=== PATIENT | male | born 1980 | race Caucasian/White ===

== ENCOUNTER 2019-12-17 10:12 | Emergency (ER) | payer OTHER ==
[2019-12-17 10:25] VITALS: BP 133/80; PULSE 78
--- NOTE | 2019-12-17 10:56 | EDM.PDOC ---
ED HPI GENERAL MEDICAL PROBLEM - General Chief Complaint: Abdominal Pain Stated Complaint: STOMACH PAIN Time Seen by Provider: 12/17/19 10:46 - History of Present Illness INITIAL COMMENTS - FREE TEXT/NARRATIVE: 39-year-old male presents the emergency room with abdominal pain. Patient has had some intermittent left lower abdominal pain for the past several months. He also has had pretty significant constipation for the last 3 weeks. He was seen in the walk-in clinic they started him on MiraLAX. They also did a groin ultrasound which did not show a hernia or any other significant changes according to the patient. The patient had a very small BM this morning consisting of a few small jarod and this is the way it is gone for the last couple of weeks. He did start MiraLAX after being seen in the walk-in clinic a week ago but this has not really helped yet he is developing more pressure in this area. The patient has not had any vomiting, but recently has had some intermittent brief nausea. No fevers or chills. Denies any burning or frequency with urination. 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 Treatments CEMENT MASON: Reports: Other (see below) Other Treatments CEMENT MASON: miralax, increase fluid intake Abdominal Pain Score (Numeric/FACES): 4 - Related Data Allergies Allergy/AdvReac Type Severity Reaction Status Date / Time meperidine [From Demerol] Allergy Vomiting Verified 12/17/19 10:26 Home Meds: Home Meds Latanoprost 1 drop EYEBOTH DAILY 12/17/19 [History] Omeprazole 20 mg PO DAILY 12/17/19 [History] lisinopriL [Lisinopril] 30 mg PO DAILY 12/17/19 [History] Past Medical History HEENT History: Reports: Impaired Vision Cardiovascular History: Reports: Hypertension Respiratory History: Reports: None Gastrointestinal History: Reports: GERD Genitourinary History: Reports: Other (See Below) Other Genitourinary History: urgency and up at night to void more than once Musculoskeletal History: Reports: Back Pain, Chronic Neurological History: Reports: None Psychiatric History: Reports: None Endocrine/Metabolic History: Reports: None Hematologic History: Reports: None Immunologic History: Reports: None Oncologic (Cancer) History: Reports: None Dermatologic History: Reports: None - Infectious Disease History Infectious Disease History: Reports: Meningitis - Past Surgical History Head Surgeries/Procedures: Reports: None HEENT Surgical History: Reports: Oral Surgery, Other (See Below) Other HEENT Surgeries/Procedures: mass removed from right jaw Male Surgical History: Reports: Other (See Below) Other Male Surgeries/Procedures: testcular vein Musculoskeletal Surgical History: Reports: Other (See Below) Other Musculoskeletal Surgeries/Procedures:: bone spurs and fused vertabre in lower back Social & Family History - Family History HEENT: Reports: None Cardiac: Reports: Heart Failure Respiratory: Reports: None GI: Reports: None : Reports: None OBGYN: Reports: None Musculoskeletal: Reports: None Neurological: Reports: None Psychiatric: Reports: None Endocrine/Metabolic: Reports: None Hematologic: Reports: None Immunologic: Reports: None Oncologic: Reports: Prostate, Other (See Below) Other Oncologic Family History: throat - Tobacco Use Packs/Tins Daily: 0.2 - Caffeine Use Caffeine Use: Reports: Coffee, Soda, Tea - Recreational Drug Use Recreational Drug Use: No ED ROS GENERAL - Review of Systems Review Of Systems: See Below Constitutional: Reports: No Symptoms HEENT: Reports: No Symptoms Respiratory: Reports: No Symptoms Cardiovascular: Reports: No Symptoms GI/Abdominal: Reports: Abdominal Pain, Constipation, Diarrhea (At a couple times he had some episodes of very small watery stools.), Nausea (Brief occasional). Denies: Vomiting : Reports: No Symptoms ED EXAM, GI/ABD - Physical Exam Exam: See Below Exam Limited By: No Limitations General Appearance: Alert, No Apparent Distress Head: Atraumatic, Normocephalic Neck: Normal Inspection, Supple, Non-Tender, Full Range of Motion. No: Lymph adenopathy (L), Lymphadenopathy (R) Respiratory/Chest: No Respiratory Distress, Lungs Clear, Normal Breath Sounds Cardiovascular: Regular Rate, Rhythm, No Edema, No Murmur GI/Abdominal Exam: Normal Bowel Sounds, Soft, Tender (Mild tenderness in the left lower quadrant with palpation no rigidity rebound or guarding noted) (Male) Exam: No Hernia, Normal Inspection Course - Vital Signs Last Recorded V/S: Last Vital Signs Temp 36.4 C 12/17/19 10:20 Pulse 78 12/17/19 10:20 Resp 16 12/17/19 10:20 BP 133/80 12/17/19 10:20 Pulse Ox 100 12/17/19 10:20 - Orders/Labs/Meds Orders: Active Orders 24 hr Category Date Time Status Abdomen 2V AP Flat Upright [CR] Stat Exams 12/17/19 10:57 Taken Labs: Laboratory Tests 12/17/19 12/17/19 12/17/19 Range/Units 11:15 11:23 11:23 WBC 6.61 (4.23-9.07) K/mm3 RBC 4.54 L (4.63-6.08) M/mm3 Hgb 14.9 (13.7-17.5) gm/dl Hct 43.0 (40.1-51.0) % MCV 94.7 H (79.0-92.2) fl MCH 32.8 H (25.7-32.2) pg MCHC 34.7 (32.2-35.5) g/dl RDW Std Deviation 41.3 (35.1-43.9) fL Plt Count 258 (163-337) K/mm3 MPV 10.2 (9.4-12.3) fl Neut % (Auto) 64.0 (34.0-67.9) % Lymph % (Auto) 25.0 (21.8-53.1) % [place] % (Auto) 8.0 (5.3-12.2) % Eos % (Auto) 2.0 (0.8-7.0) Baso % (Auto) 0.5 (0.1-1.2) % Neut # (Auto) 4.24 (1.78-5.38) K/mm3 Lymph # (Auto) 1.65 (1.32-3.57) K/mm3 [place] # (Auto) 0.53 (0.30-0.82) K/mm3 Eos # (Auto) 0.13 (0.04-0.54) K/mm3 Baso # (Auto) 0.03 (0.01-0.08) K/mm3 Sodium 139 (136-145) mEq/L Potassium 4.3 (3.5-5.1) mEq/L Chloride 102 (98-107) mEq/L Carbon Dioxide 28 (21-32) mEq/L Anion Gap 13.3 (5-15) BUN 18 (7-18) mg/dL Creatinine 1.2 (0.7-1.3) mg/dL Est Cr Clr Drug Dosing 98.78 mL/min Estimated GFR (MDRD) > 60 (>60) mL/min BUN/Creatinine Ratio 15.0 (14-18) Glucose 94 (74-106) mg/dL Calcium 9.4 (8.5-10.1) mg/dL Total Bilirubin 0.8 (0.2-1.0) mg/dL AST 26 (15-37) U/L ALT 46 (16-63) U/L Alkaline Phosphatase 54 (46-116) U/L Total Protein 8.3 H (6.4-8.2) g/dl Albumin 4.9 (3.4-5.0) g/dl Globulin 3.4 gm/dL Albumin/Globulin Ratio 1.4 (1-2) Urine Color Light yellow (Yellow) Urine Appearance Clear (Clear) Urine pH 7.0 (5.0-8.0) Ur Specific [place] > or = 1.030 (1.005-1.030) Urine Protein Negative (Negative) Urine Glucose (UA) Negative (Negative) Urine Ketones Negative (Negative) Urine Occult Blood Negative (Negative) Urine Nitrite Negative (Negative) Urine Bilirubin Negative (Negative) Urine Urobilinogen 0.2 (0.2-1.0) Ur Leukocyte Esterase Negative (Negative) - Re-Assessments/Exams Free Text/Narrative Re-Assessment/Exam: 12/17/19 12:57 Laboratory evaluation is unremarkable. Abdominal x-ray shows fair amount of stool accumulation in the right side of the colon. A little bit in the rectum sigmoid colon is not remarkable. Did discuss this with the patient and we will go ahead and treat with mag citrate and see how he does. We did discuss the pros and cons of doing a CT and he would like to hold off on this at this point. Departure - Departure Time of Disposition: 12:58 Disposition: Home, Self-Care 01 Clinical Impression: Abdominal pain, Constipation - Discharge Information Referrals: Anita Davenport PA-C [Primary Care Provider] - Forms: ED Department Discharge Additional Instructions: Return to the emergency room with any questions problems or worsening symptoms. Return to the emergency room if not better in 24 hours sooner if getting worse. Go to the pharmacy and get 2 bottles of magnesium citrate. Go home poor 1 over ice and drink it but the other in the refrigerator. If you do not have a significant BM in 6 hours drink the second bottle. Continue using the MiraLAX as directed. Follow-up with your regular healthcare provider this next week if needed. Sepsis Event Note (ED) - Evaluation Sepsis Screening Result: No Definite Risk - Focused Exam Vital Signs: Vital Signs Temp Pulse Resp BP Pulse Ox 12/17/19 10:20 36.4 C 78 16 133/80 100 - My Orders Last 24 Hours: My Active Orders 12/17/19 10:57 Abdomen 2V AP Flat Upright [CR] Stat - Assessment/Plan Last 24 Hours: My Active Orders 12/17/19 10:57 Abdomen 2V AP Flat Upright [CR] Stat
--- NOTE | 2019-12-19 09:46 | CR ---
Abdomen: Supine and upright views of the abdomen were obtained. Comparison: No prior abdominal imaging is available. Scattered gas within small bowel and colon is seen believed to be within normal limits. Calcifications are noted within the pelvis most likely representing phleboliths. No free air is identified. Bony structures appear within normal limits for the patient's age. Impression: 1. Nothing acute is identified on 2 view abdominal x-ray. Diagnostic code #1 This report was dictated in MDT
== END 2019-12-17 13:15 | disposition home or self-care (01) ==
LOC: JD.ED 10:12
DX: K59.00 Constipation, unspecified (principal); I10 Essential (primary) hypertension; K21.9 Gastro-esophageal reflux disease without esophagitis; F17.220 Nicotine dependence, chewing tobacco, uncomplicated; Z79.899 Other long term (current) drug therapy; Z88.5 Allergy status to narcotic agent
CPT/HCPCS: 36415; 74019; 74019-26; 80053; 81003; 85025; 99282; 99284-25

== ENCOUNTER 2020-02-01 15:15 | Emergency (ER) | payer OTHER ==
[2020-02-01 15:56] VITALS: BP 132/86; PULSE 75
[2020-02-01] MEDS ORDERED: Lactated Ringers 1,000 ML IV ONE (16:26)
[2020-02-01] MEDS ORDERED: Sodium Chloride 0.9% 10 ML Syringe FLUSH PRN (16:26)
--- NOTE | 2020-02-01 17:49 | EDM.PDOC ---
ED HPI GENERAL MEDICAL PROBLEM - General Chief Complaint: General Stated Complaint: MUSCLE CRAMPING ENTIRE BODY Time Seen by Provider: 02/01/20 15:59 Source of Information: Reports: Patient, RN Notes Reviewed - History of Present Illness INITIAL COMMENTS - FREE TEXT/NARRATIVE: Has been working out in heat today and previous days this week. He developed severe cramping arms and legs. He felt weak and dizzy. Now feeling better after arrival to ED and getting out of heat. He has not been vomiting. No cough, fever or difficulty breathing. Generalized Pain Score (Numeric/FACES): 9 - Related Data Allergies Allergy/AdvReac Type Severity Reaction Status Date / Time meperidine [From Demerol] Allergy Vomiting Verified 02/01/20 15:56 Home Meds: Home Meds Latanoprost 1 drop EYEBOTH DAILY 12/17/19 [History] Omeprazole 20 mg PO DAILY 12/17/19 [History] lisinopriL [Lisinopril] 30 mg PO DAILY 12/17/19 [History] Multivit-Min/Folic/Vit K/Lycop [Men's Multivitamin Tablet] 1 each PO DAILY 02/01/20 [History] Psyllium Husk [Fiber] 0 gm PO DAILY 02/01/20 [History] Past Medical History HEENT History: Reports: Glaucoma, Impaired Vision Cardiovascular History: Reports: Hypertension Respiratory History: Reports: None Gastrointestinal History: Reports: GERD, Other (See Below) Other Gastrointestinal History: Pt has 2 hernias that will be operated on 04/10. Genitourinary History: Reports: Other (See Below) Other Genitourinary History: urgency and up at night to void more than once Musculoskeletal History: Reports: Back Pain, Chronic Neurological History: Reports: None Psychiatric History: Reports: None Endocrine/Metabolic History: Reports: Obesity/BMI 30+ Hematologic History: Reports: None Immunologic History: Reports: None Oncologic (Cancer) History: Reports: None Dermatologic History: Reports: None - Infectious Disease History Infectious Disease History: Reports: None - Past Surgical History HEENT Surgical History: Reports: Oral Surgery, Other (See Below) Other HEENT Surgeries/Procedures: mass removed from right jaw Male Surgical History: Reports: Other (See Below) Other Male Surgeries/Procedures: testcular vein Neurological Surgical History: Reports: Other (See Below) Other Neurological Surgeries/Procedures: Ulnar Nerve Surgery Musculoskeletal Surgical History: Reports: Other (See Below) Other Musculoskeletal Surgeries/Procedures:: bone spurs and fused vertabre in lower back, Surgeries to left ankle and left wrist. Social & Family History - Family History HEENT: Reports: None Cardiac: Reports: Heart Failure Respiratory: Reports: None GI: Reports: None : Reports: None OBGYN: Reports: None Musculoskeletal: Reports: None Neurological: Reports: None Psychiatric: Reports: None Endocrine/Metabolic: Reports: None Hematologic: Reports: None Immunologic: Reports: None Oncologic: Reports: Prostate, Other (See Below) Other Oncologic Family History: throat - Tobacco Use Smoking Status *Q: Former Smoker Used Tobacco, but Quit: Yes Month/Year Tobacco Last Used: 2005 - Caffeine Use Caffeine Use: Reports: Coffee - Recreational Drug Use Recreational Drug Use: No ED ROS GENERAL - Review of Systems Review Of Systems: See Below Constitutional: Reports: Diaphoresis (gone). Denies: Fever, Chills HEENT: Reports: No Symptoms Respiratory: Denies: Shortness of Breath, Cough Cardiovascular: Denies: Chest Pain GI/Abdominal: Denies: Abdominal Pain, Diarrhea, Nausea, Vomiting Musculoskeletal: Reports: Muscle Stiffness Skin: Reports: No Symptoms Neurological: Reports: Dizziness. Denies: Trouble Speaking, Difficulty Walking ED EXAM, GENERAL - Physical Exam Exam: See Below General Appearance: Alert, No Apparent Distress Throat/Mouth: Normal Inspection Head: Atraumatic Neck: Supple Respiratory/Chest: No Respiratory Distress, Lungs Clear, Normal Breath Sounds Cardiovascular: Regular Rate, Rhythm GI/Abdominal: Soft, Non-Tender Back Exam: Paraspinal Tenderness. No: CVA Tenderness (L), CVA Tenderness (R) Extremities: No: Pedal Edema, Leg Pain Neurological: Alert, Oriented, No Motor/Sensory Deficits Skin Exam: Warm, Dry, Normal Color Course - Vital Signs Last Recorded V/S: Last Vital Signs Temp 97.5 F 02/01/20 15:53 Pulse 75 02/01/20 15:53 Resp 16 02/01/20 15:53 BP 132/86 02/01/20 15:53 Pulse Ox 100 02/01/20 15:53 - Orders/Labs/Meds Labs: Laboratory Tests 02/01/20 02/01/20 Range/Units 16:04 16:04 WBC 10.53 H (4.23-9.07) K/mm3 RBC 4.54 L (4.63-6.08) M/mm3 Hgb 15.0 (13.7-17.5) gm/dl Hct 42.9 (40.1-51.0) % MCV 94.5 H (79.0-92.2) fl MCH 33.0 H (25.7-32.2) pg MCHC 35.0 (32.2-35.5) g/dl RDW Std Deviation 42.1 (35.1-43.9) fL Plt Count 251 (163-337) K/mm3 MPV 10.2 (9.4-12.3) fl Neut % (Auto) 81.9 H (34.0-67.9) % Lymph % (Auto) 9.6 L (21.8-53.1) % [place] % (Auto) 7.4 (5.3-12.2) % Eos % (Auto) 0.4 L (0.8-7.0) Baso % (Auto) 0.4 (0.1-1.2) % Neut # (Auto) 8.63 H (1.78-5.38) K/mm3 Lymph # (Auto) 1.01 L (1.32-3.57) K/mm3 [place] # (Auto) 0.78 (0.30-0.82) K/mm3 Eos # (Auto) 0.04 (0.04-0.54) K/mm3 Baso # (Auto) 0.04 (0.01-0.08) K/mm3 Manual Slide Review Abnormal smear Sodium 131 L (136-145) mEq/L Potassium 3.9 (3.5-5.1) mEq/L Chloride 95 L (98-107) mEq/L Carbon Dioxide 24 (21-32) mEq/L Anion Gap 15.9 H (5-15) BUN 29 H (7-18) mg/dL Creatinine 1.9 H (0.7-1.3) mg/dL Est Cr Clr Drug Dosing 62.39 mL/min Estimated GFR (MDRD) 40 (>60) mL/min BUN/Creatinine Ratio 15.3 (14-18) Glucose 83 (74-106) mg/dL Calcium 10.4 H (8.5-10.1) mg/dL Total Bilirubin 0.9 (0.2-1.0) mg/dL AST 37 (15-37) U/L ALT 54 (16-63) U/L Alkaline Phosphatase 58 (46-116) U/L Total Protein 8.6 H (6.4-8.2) g/dl Albumin 5.1 H (3.4-5.0) g/dl Globulin 3.5 gm/dL Albumin/Globulin Ratio 1.5 (1-2) Meds: Medications Discontinued Medications Generic Name Dose Route Start Last Admin Trade Name Annika PRN Reason Stop Dose Admin Lactated Ringer's 1,000 mls @ 999 mls/hr 02/01/20 16:26 02/01/20 16:30 Ringers, Lactated IV 02/01/20 17:26 999 mls/hr .BOLUS ONE Administration Sodium Chloride 10 ml 02/01/20 16:26 02/01/20 16:31 Saline Flush FLUSH 10 ml ASDIRECTED PRN Administration Keep Vein Open - Re-Assessments/Exams Free Text/Narrative Re-Assessment/Exam: 02/01/20 17:51 Have given 1 liter of NS. He feels much better. He has been drinking water and powerade, he has voided and needs to void again. Discharge instr. as documented. Departure - Departure Time of Disposition: 17:46 Disposition: Home, Self-Care 01 Condition: Fair Clinical Impression: Muscle cramps, Dehydration - Discharge Information Instructions: Muscle Cramps and Spasms, [id number] Referrals: Anita Davenport PA-C [Primary Care Provider] - Forms: ED Department Discharge Additional Instructions: Continue to drink plenty of water alternating with powerade or gatorade. Try avoid prolonged heat exposure tomorrow and the next few days. Some of your labs were abnormal today, your creatnine, a measure of kidney function was elevated at 1.9. You should have that repeated Thursday or early next week. Call clinic for appt. Return to ED as needed if symptoms worsening in any way. Sepsis Event Note (ED) - Evaluation Sepsis Screening Result: No Definite Risk
== END 2020-02-01 17:59 | disposition home or self-care (01) ==
LOC: JD.ED 15:15
DX: E86.0 Dehydration (principal); R25.2 Cramp and spasm; I10 Essential (primary) hypertension; K21.9 Gastro-esophageal reflux disease without esophagitis; E66.9 Obesity, unspecified; Z68.30 Body mass index [BMI] 30.0-30.9, adult; Z87.891 Personal history of nicotine dependence; Z88.8 Allergy status to other drugs, medicaments and biological substances; Z79.899 Other long term (current) drug therapy
CPT/HCPCS: 36415; 80053; 85025; 96360; 99284-25; J7120

== ENCOUNTER 2021-01-13 11:16 | Emergency (ER) | payer OTHER ==
[2021-01-13 11:30] VITALS: BP 135/86; PULSE 88
--- NOTE | 2021-01-13 12:13 | EDM.PDOC ---
ED HPI GENERAL MEDICAL PROBLEM - General Chief Complaint: Headache Stated Complaint: HEADACHE X 2 WEEKS SENT BY [facility] Time Seen by Provider: 01/13/21 12:13 - History of Present Illness INITIAL COMMENTS - FREE TEXT/NARRATIVE: 40-year-old male presents the emergency room with a headache. Patient states he has had a headache for over 2 weeks now. He thought it was due to a wisdom tooth and dental pain. He did have his wisdom tooth removed and it has not improved. Patient has not tried any routine medications. Patient is not aware of any Covid exposures. Patient is seen his chiropractor and this is not helped. Patient does not have a headache history. Patient has been having some muscle tightness left side of his neck that extends up over the top of his head. He has not had any fevers or chills. Patient has no other complaints at this time Headache Pain Score (Numeric/FACES): 5 - Related Data Allergies Allergy/AdvReac Type Severity Reaction Status Date / Time meperidine [From Demerol] AdvReac Severe Vomiting Verified 01/13/21 11:30 Home Meds: Home Meds Latanoprost 1 drop EYEBOTH DAILY 12/17/19 [History] Omeprazole 20 mg PO DAILY 12/17/19 [History] lisinopriL [Lisinopril] 30 mg PO DAILY 12/17/19 [History] Multivit-Min/Folic/Vit K/Lycop [Men's Multivitamin Tablet] 1 each PO DAILY 02/01/20 [History] Psyllium Husk [Fiber] 0 gm PO DAILY 02/01/20 [History] Orphenadrine [Norflex] 100 mg PO BID PRN #15 tab 01/13/21 [Rx] Past Medical History HEENT History: Reports: Glaucoma, Impaired Vision Cardiovascular History: Reports: Hypertension Respiratory History: Reports: None Gastrointestinal History: Reports: GERD, Other (See Below) Other Gastrointestinal History: Pt has 2 hernias that will be operated on 03/2020. Genitourinary History: Reports: Other (See Below) Other Genitourinary History: urgency and up at night to void more than once Musculoskeletal History: Reports: Back Pain, Chronic Neurological History: Reports: None Psychiatric History: Reports: None Endocrine/Metabolic History: Reports: Obesity/BMI 30+ Hematologic History: Reports: None Immunologic History: Reports: None Oncologic (Cancer) History: Reports: None Dermatologic History: Reports: None - Infectious Disease History Infectious Disease History: Reports: None - Past Surgical History HEENT Surgical History: Reports: Oral Surgery, Other (See Below) Other HEENT Surgeries/Procedures: mass removed from right jaw, wisdom tooth ext raction Male Surgical History: Reports: Other (See Below) Other Male Surgeries/Procedures: testcular vein Neurological Surgical History: Reports: Other (See Below) Other Neurological Surgeries/Procedures: Ulnar Nerve Surgery Musculoskeletal Surgical History: Reports: Other (See Below) Other Musculoskeletal Surgeries/Procedures:: bone spurs and fused vertabre in lower back, Surgeries to left ankle and left wrist. Social & Family History - Family History HEENT: Reports: None Cardiac: Reports: Heart Failure Respiratory: Reports: None GI: Reports: None : Reports: None OBGYN: Reports: None Musculoskeletal: Reports: None Neurological: Reports: None Psychiatric: Reports: None Endocrine/Metabolic: Reports: None Hematologic: Reports: None Immunologic: Reports: None Oncologic: Reports: Prostate, Other (See Below) Other Oncologic Family History: throat - Caffeine Use Caffeine Use: Reports: Coffee - Recreational Drug Use Recreational Drug Use: No ED ROS GENERAL - Review of Systems Review Of Systems: See Below Constitutional: Reports: No Symptoms HEENT: Reports: No Symptoms, Vertigo Respiratory: Reports: Cough GI/Abdominal: Reports: No Symptoms Musculoskeletal: Reports: Neck Pain Skin: Reports: No Symptoms Neurological: Reports: Headache Psychiatric: Reports: No Symptoms ED EXAM, GENERAL - Physical Exam Exam: See Below Exam Limited By: No Limitations General Appearance: Alert, No Apparent Distress Eye Exam: Bilateral Eye: Normal Inspection, PERRL Ears: Normal External Exam, Normal Canal, Hearing Grossly Normal, Normal TMs Nose: Normal Inspection, Normal Mucosa, No Blood Throat/Mouth: Normal Inspection, Normal Lips, Normal Teeth, Normal Gums, Normal Oropharynx, Normal Voice, No Airway Compromise Head: Atraumatic, Normocephalic Neck: Full Range of Motion, Other (Marked tenderness in the paraspinous muscles and left side with significant tenderness with palpation at the insertion of the skull the muscles are tender into the shoulder.). No: Tender Midline Respiratory/Chest: No Respiratory Distress, Lungs Clear, Normal Breath Sounds Cardiovascular: Regular Rate, Rhythm, No Edema, No Murmur GI/Abdominal: Normal Bowel Sounds, Soft, Non-Tender Back Exam: Normal Inspection. No: CVA Tenderness (L), CVA Tenderness (R) Neurological: Alert, Oriented, Normal Cognition, No Motor/Sensory Deficits Course - Vital Signs Last Recorded V/S: Last Vital Signs Temp 36.1 C 01/13/21 11:26 Pulse 88 01/13/21 11:26 Resp 16 01/13/21 11:26 BP 135/86 01/13/21 11:26 Pulse Ox 100 01/13/21 11:26 - Orders/Labs/Meds Labs: Laboratory Tests 01/13/21 Range/Units 13:16 SARS-CoV-2 RNA (LEYDI) Negative (NEGATIVE) Meds: Medications Discontinued Medications Generic Name Dose Route Start Last Admin Trade Name Annika PRN Reason Stop Dose Admin Diazepam 5 mg 01/13/21 12:23 01/13/21 12:39 Diazepam 10 Mg/2 Ml Syringe IVPUSH 01/13/21 12:24 5 mg ONETIME ONE Administration Diphenhydramine HCl 25 mg 01/13/21 12:23 01/13/21 12:38 Diphenhydramine 50 Mg/Ml Sdv IVPUSH 01/13/21 12:24 25 mg ONETIME ONE Administration Hydromorphone HCl 0.5 mg 01/13/21 15:39 01/13/21 15:51 Hydromorphone 0.5 Mg/0.5 Ml Syringe IVPUSH 01/13/21 15:40 0.5 mg ONETIME ONE Administration Lactated Ringer's 1,000 mls @ 999 mls/hr 01/13/21 12:23 01/13/21 12:38 Ringers, Lactated IV 01/13/21 13:23 999 mls/hr .BOLUS ONE Administration Ketorolac Tromethamine 30 mg 01/13/21 14:40 01/13/21 14:46 Ketorolac 30 Mg/Ml Sdv IVPUSH 01/13/21 14:41 30 mg ONETIME ONE Administration Orphenadrine Citrate 100 mg 01/13/21 16:18 Orphenadrine 100 Mg Tab.Er PO 01/13/21 16:19 ONETIME ONE - Re-Assessments/Exams Free Text/Narrative Re-Assessment/Exam: 01/13/21 12:29 This 40-year-old gentleman appears to have a muscle tension headache we will treat him with Valium fluids and Benadryl and see how he does we may need to give Toradol. 01/13/21 13:20 Patient has not had any relief thus far we will check a head CT and if this is okay give him some Toradol. 01/13/21 14:[address] does not show anything acute he does have some asymmetric widening of the temporal horn of the right lateral ventricle believed to be chronic, however, radiology does recommend follow-up MRI as an outpatient. 01/13/21 16:28 Patient is doing better Toradol did not help him I follow this up with 0.5 of Dilaudid he feels 80% better now I will discharge home we will give him Norflex as most of his symptoms are related to the muscle tension at this time and I will give him a prescription for Norflex to take nightly. Departure - Departure Time of Disposition: 16:29 Disposition: Home, Self-Care 01 Clinical Impression: Muscle tension headache - Discharge Information Referrals: Anita Davenport PA-C [Primary Care Provider] - Forms: ED Department Discharge Additional Instructions: Return to the emergency room with any questions problems or worsening symptoms. Take it easy once you get home get plenty of rest and get a good night sleep. I gave you a prescription for Norflex, this is a muscle relaxant use it mostly at night but you can use it twice daily if needed. Use caution driving or operating potentially hazardous equipment while using this. If you are doing an activity that requires a commercial hvac technician's license allow 24 hours for to clear your system. Follow-up in the clinic on Thursday or Thursday if needed. Sepsis Event Note (ED) - Evaluation Sepsis Screening Result: No Definite Risk - Focused Exam Vital Signs: Vital Signs Temp Pulse Resp BP Pulse Ox 01/13/21 11:26 36.1 C 88 16 135/86 100
[2021-01-13] MEDS ORDERED: Lactated Ringers 1,000 ML IV ONE (12:23)
[2021-01-13] MEDS ORDERED: diphenhydrAMINE 50 MG/ML SDV IVPUSH ONE (12:23)
--- NOTE | 2021-01-13 14:26 | CT ---
Head CT Technique: Multiple axial sections through the brain were obtained. Intravenous contrast was not utilized. Reconstructed coronal and sagittal images were obtained. Comparison: No prior intracranial imaging is available. Findings: Enlargement is seen within the temporal horn of the right lateral ventricle. On the right side this is asymmetric to a normal left-sided sinus. This most likely is chronic. Ventricles along with basal cisterns and sulci over the convexities are otherwise within normal limits. No midline shift or mass-effect is seen. Bone window settings were reviewed which show no acute calvarial finding. Visualized mastoid sinuses and paranasal sinuses show nothing acute. Impression: 1. Asymmetric widening of the temporal horn of the right lateral ventricle most likely chronic. I recommend MRI study with gadolinium to confirm that no additional abnormality is present to cause this finding. 2. No additional abnormality is appreciated on noncontrast head CT study. Diagnostic code #3
[2021-01-13] MEDS ORDERED: Ketorolac 30 MG/ML SDV IVPUSH ONE (14:40)
[2021-01-13] MEDS ORDERED: HYDROmorphone 0.5 MG/0.5 ML Syringe IVPUSH ONE (15:39)
[2021-01-13] MEDS ORDERED: Orphenadrine 100 MG Tab.ER PO ONE (16:18)
== END 2021-01-13 16:46 | disposition home or self-care (01) ==
LOC: JD.ED 11:16
DX: G44.209 Tension-type headache, unspecified, not intractable (principal); I10 Essential (primary) hypertension; K21.9 Gastro-esophageal reflux disease without esophagitis; E66.9 Obesity, unspecified; Z68.31 Body mass index [BMI] 31.0-31.9, adult; Z88.8 Allergy status to other drugs, medicaments and biological substances; Z79.899 Other long term (current) drug therapy; Z20.822 Contact with and (suspected) exposure to COVID-19
CPT/HCPCS: 70450; 87635; 96374; 96375; 99284; A9270; J1170; J1200; J1885; J3360; J7120; U0002